=== PATIENT | male | born 1995 | race African-American/Black ===

== ENCOUNTER 2018-07-16 11:55 | Emergency (ER) | payer MEDICAID ==
[~2018-07-16] VITALS: Ht 177.8 cm; Wt 90.0 kg
[2018-07-16] MEDS ORDERED: BACITRACIN ZINC OINT UDPKT TOP ONE (13:15)
[2018-07-16] MEDS ORDERED: ACETAMINOPHEN 325MG TABLET PO ONE (13:15)
[2018-07-16] MEDS ORDERED: TETANUS, DIPHTHERIA, PERTUSSIS VAC/PF 0.5ML (>7YR OLD) IM ONE (13:15)
[2018-07-16 15:00] VITALS: BP 130/77
== END 2018-07-16 15:13 | disposition home or self-care (01) ==
LOC: ER 11:55
DX: S01.01XA Laceration without foreign body of scalp, initial encounter (principal); S50.811A Abrasion of right forearm, initial encounter; E11.9 Type 2 diabetes mellitus without complications; F31.9 Bipolar disorder, unspecified; Z91.011 Allergy to milk products; Y08.89XA Assault by other specified means, initial encounter; Y93.89 Activity, other specified; Y92.89 Other specified places as the place of occurrence of the external cause; Y99.8 Other external cause status
CPT/HCPCS: 12002; 70486; 90471; 90715; 99284